=== PATIENT | female | born 1955 | race Caucasian/White ===

== ENCOUNTER 2017-05-19 09:26 | Day surgery (SDC) | payer BC ==
[2017-05-19] MEDS ORDERED: Dextrose 5%-Lactated Ringers 1,000 ML IV SCH (10:15)
[2017-05-19] MEDS ORDERED: Glycopyrrolate 0.2 MG/ML 2 ML SDV IVPUSH ONE (10:30)
[2017-05-19] MEDS ORDERED: fentaNYL 100 MCG/2 ML SDV ONE (11:12)
[2017-05-19] MEDS ORDERED: Propofol 200 MG/20 ML SDV ONE (11:12)
[2017-05-19 12:34] VITALS: BP 105/61
--- NOTE | 2017-05-23 13:13 | OR ---
DATE OF PROCEDURE: 05/19/2017 PREOPERATIVE DIAGNOSIS: Worsening gastroesophageal reflux disease. POSTOPERATIVE DIAGNOSES: 1. Worsening gastroesophageal reflux disease associated with moderate hiatal hernia and ulcerated esophagitis. 2. Very mild antral gastritis. OPERATIVE PROCEDURES: Esophagogastroduodenoscopy with; 1. Biopsies of esophagogastric junction for histologic evaluation. 2. Biopsies of the antrum for CLOtest. ANESTHESIA: IV sedation. INDICATION FOR PROCEDURE: This is a 61-year-old female presenting with progressively worsening gastroesophageal reflux symptoms. She has been on Prevacid 30 mg a day long-term. The plan is to proceed with an upper GI endoscopy with biopsies as indicated. Potential risks including bleeding and perforation were discussed, and the patient wishes to proceed. DETAILS OF PROCEDURE: The patient was taken to the operating room and placed in a left lateral decubitus position. IV sedation was administered, after which the upper GI endoscope was passed orally through the length of the esophagus and into the stomach with retroflexion view of the fundus, and thereafter through the pyloric channel and into the junction of the third and fourth portions of the duodenum. The findings included normal hypopharynx, larynx, upper esophageal sphincter, and esophageal body. At the EG junction, there was a moderate-sized hiatal hernia measuring around 2 to 3 cm. This was associated with marked gastroesophageal reflux changes. There were 2 linear ulcers present extending upward on to the esophageal mucosa for a length of around 3 cm. These were covered with fibrinous exudate. There was no stricturing or plaque-like mucosal areas. The stomach retroflexion confirmed the hiatal hernia from that vantage point. The patient had a very mild redness in the pre-pyloric area without erosions or ulcers. The pyloric channel and duodenum were unremarkable. At this point, biopsies were obtained from the antrum and sent for CLOtest for H. pylori. Multiple biopsies were then obtained from esophagogastric junction and sent for histologic evaluation. Minimal bleeding from the biopsy sites was seen. The procedure was then concluded. The patient was taken to the recovery room in a satisfactory condition. The plan will be to see the patient back next week to review the biopsy findings as well as discuss treatment options. At this point, her reflux disease appears to becoming refractory to medical management, and she might be a good candidate for an antireflux procedure. Zoran Doan MD /[id number]
== END 2017-05-19 13:00 | disposition home or self-care (01) ==
LOC: JP.SDS 09:26
PROVIDERS: ATTEND Surgery
DX: K20.9 Esophagitis, unspecified (principal); K44.9 Diaphragmatic hernia without obstruction or gangrene; I10 Essential (primary) hypertension; E11.9 Type 2 diabetes mellitus without complications; E78.00 Pure hypercholesterolemia, unspecified; K21.9 Gastro-esophageal reflux disease without esophagitis; Z91.013 Allergy to seafood; F17.210 Nicotine dependence, cigarettes, uncomplicated
CPT/HCPCS: 43239; 87081; J2704; J3010; J7042; 88305; J3490

== ENCOUNTER 2024-01-11 07:56 | Day surgery (SDC) | payer MEDICARE, BC ==
[~2024-01-11 07:56] MED LIST: Midazolam 1 MG/ML 2 ML SDV ONE; Propofol 200 MG/20 ML SDV ONE; fentaNYL 50 MCG/ML SDV ONE
[2024-01-11] MEDS: Lactated Ringers 1,000 ML IV SCH (09:00)
[2024-01-11 11:23] VITALS: BP 140/60; PULSE 67
== END 2024-01-11 11:20 | disposition home or self-care (01) ==
LOC: JP.SDS 07:56
PROVIDERS: ATTEND Student in an Organized Health Care Education/Training Program
DX: K52.831 Collagenous colitis (principal); K57.30 Diverticulosis of large intestine without perforation or abscess without bleeding; E11.59 Type 2 diabetes mellitus with other circulatory complications; E11.69 Type 2 diabetes mellitus with other specified complication; E11.29 Type 2 diabetes mellitus with other diabetic kidney complication; I15.2 Hypertension secondary to endocrine disorders; E78.5 Hyperlipidemia, unspecified; K21.9 Gastro-esophageal reflux disease without esophagitis; E66.3 Overweight; Z68.27 Body mass index [BMI] 27.0-27.9, adult; F17.210 Nicotine dependence, cigarettes, uncomplicated; Z79.84 Long term (current) use of oral hypoglycemic drugs; Z79.899 Other long term (current) drug therapy
CPT/HCPCS: 45380; J2250; J2704; J3010; J7120; 88305